=== PATIENT | female | born 1985 | race Caucasian/White ===

== ENCOUNTER 2016-09-11 15:13 | Outpatient (CLI) | payer OTHER ==
[~2016-09-11] VITALS: Ht 154.9 cm; Wt 49.2 kg
[~2016-09-11 15:13] MED LIST: DIMISTA PO; OMEP20CA16 PO; XOPENEX
[2016-09-11 15:17] VITALS: Ht 154.9 cm; Wt 49.2 kg
[2016-09-11 15:30] VITALS: BP 127/72; PULSE 83; RESP 18
--- NOTE | 2016-09-11 16:03 | RADRPT ---
PROCEDURE: US OB biophysical profile. CLINICAL INDICATION: decreased movements, contractions TECHNIQUE: Multiple sonographic images of the pelvis were obtained. The images were reviewed on a PACS workstation. COMPARISON: No prior studies are available for comparison. FINDINGS: There is a single viable intrauterine gestation. Cardiac activity is present with 119 beats per min tejon. There is a breech presentation. The placenta is fundal. There is no evidence of placental abruption. There is a decreased amount of amniotic fluid with an OPAL = 6.1 cm. Biophysical profile: movement 2/2 tone 2/2. breathing 2/2 OPAL 2/2 Total 11/17 RPTAT: AA . IMPRESSION: Normal biophysical profile. Oligohydramnios. . .Eduard Lopez MD, Date Time Electronically viewed and signed by .Eduard Lopez MD, MD on 09/11/2016 16:02 .S/
--- NOTE | 2016-09-11 22:36 | RADRPT ---
PROCEDURE: OB ultrasound CLINICAL INDICATION: . OB ultrasound with fluid volume assessment. TECHNIQUE: Sonographic evaluation to assess the amniotic fluid volume was performed. Transabdomin al imaging of the gravid uterus was performed. COMPARISON: 09/11/2016 FINDINGS: The amniotic fluid index equals approximately 8.0 cm. heart rate: 130 Beats per minute. Presentation: Breech Placenta is fundal - maternal left IMPRESSION: Amniotic fluid index equals 8.0 cm. Previously 6.1 cm Breech presentation. RPTAT: AADD .Edward Mary MD, MD Date Time Electronically viewed and signed by .Edward Mary MD, on 09/11/2016 22:35 .B/
--- NOTE | 2016-10-01 17:15 | QN ---
Documentation Comment IUP 38w back pain MARIALUISA RAMIREZ MD Oct 01, 2016 17:15
== END 2016-09-11 23:15 | disposition home or self-care (01) ==
LOC: OBT 15:13 → L-D 15:14 → OBG 16:39 → OBT 23:15
PROVIDERS: ATTEND Obstetrics & Gynecology
DX: O26.893 Other specified pregnancy related conditions, third trimester (principal); M54.9 Dorsalgia, unspecified; Z3A.38 38 weeks gestation of pregnancy
CPT/HCPCS: 59025; 76815; 76818; Z7500; G0463

== ENCOUNTER 2016-09-15 16:48 | Inpatient (IN) | payer OTHER ==
[~2016-09-15] VITALS: Ht 154.9 cm; Wt 49.4 kg
[2016-09-15 16:58] VITALS: Ht 154.9 cm; Wt 49.4 kg
[2016-09-15 16:59] VITALS: RESP 19
[2016-09-15] MEDS ORDERED: PRENAT PO (17:00)
--- NOTE | 2016-09-15 17:43 | RADRPT ---
PROCEDURE: OB ultrasound for biophysical profile CLINICAL INDICATION: Low amniotic fluid index. TECHNIQUE: Multiple sonographic images of the pelvis were obtained. Transabdominal view of the gr avid uterus are available for review. The images were reviewed on a PACS workstation. COMPARISON: 09/11/2016. FINDINGS: breathing movement = 2/2 tone = 2/2 motion = 2/2 Quantitative amniotic fluid volume = 2/2 OPAL = 4.6 cm Single live intrauterine with cardiac activity at 150 beats per minute. There is a fundal placenta without previa. IMPRESSION: 1. Single living intrauterine gestation in breech position. 2. Biophysical profile = 8/8. 3. OPAL = 4.6 cm consistent with borderline oligohydramnios. RPTAT: AACC Physician Fuad Date Time Electronically viewed and signed by Physician Fuad on 09/15/2016 17:43 /
--- NOTE | 2016-09-15 18:00 | TRIAGE ---
OB Triage Datetime Report Generated by CPN: 09/15/2016 18:00 Datetime: 09/15/2016 17:47 Maternal Assessment Level of Consciousness: Fully Conscious DTR's/Clonus: DTRs 1+ Headache: Denies Blurred Vision: No Nausea/Vomiting: Denies RUQ Epigastric Pain: Denies Facial Edema: None Labor Evaluation Frequency: IRREGULAR Monitor Mode: External Duration (sec)2399: 40-60 Quality: Mild Pattern: Normal: <= 5 Contractions in 10 Minutes Resting Tone [place]: Relaxed Heart Rate FHR Baseline Rate: 120 Monitor Mode: External US Variability: Moderate 6-25 bpm Accelerations: 15X15 Decelerations: None Category: Category I Pain Assessment Pain Scale: 0 Pain Presence: None/Denies Pain Type: N/A Pain Goal: 3 Datetime: 09/15/2016 17:16 Maternal Assessment Level of Consciousness: Fully Conscious DTR's/Clonus: DTRs 1+ Headache: Denies Blurred Vision: No Respiratory Effort: Unlabored Breath Sounds, Left: Clear and Equal Breath Sounds, Right: Clear and Equal Nausea/Vomiting: Denies RUQ Epigastric Pain: Denies Facial Edema: None Labor Evaluation Frequency: X1 Monitor Mode: External Duration (sec)2399: 70 Resting Tone [place]: Relaxed Heart Rate FHR Baseline Rate: 125 Monitor Mode: External US Variability: Moderate 6-25 bpm Accelerations: 15X15 Decelerations: None Category: Category I Pain Presence: None/Denies Pain Type: N/A Vaginal Exam Membrane Status: Intact Datetime: 09/15/2016 17:02 Assessment Type: Triage Maternal Assessment Level of Consciousness: Fully Conscious DTR's/Clonus: DTRs 2+; No Clonus Headache: Denies Blurred Vision: No Respiratory Effort: Unlabored; Regular Rhythm; Equal Expansion Breath Sounds, Left: Clear and Equal Breath Sounds, Right: Clear and Equal Nausea/Vomiting: Denies RUQ Epigastric Pain: Denies Lower Extremities Edema: None Degree: None Upper Extremities Edema: None Degree: None Facial Edema: None Fall Risk Assessment History of Falling: (0) No Secondary Diagnosis: (0) No Ambulatory Aid: (0) Bedrest/Nurse Assist IV Therapy: (0) No Gait: (0) Normal/Bedrest/Immobile Mental Status: (0) Oriented to Own Ability Fall Score: 0 Fall Risk Score Definition: No Risk: No action required Datetime: 09/15/2016 16:45 Time of Arrival: 09/15/2016 16:45 EGA: 39.0 Arrived By: Ambulatory Arrived From: [facility] Office Chief Complaint: P;T CAME IN FOR A F/U NST ANSBPP FOR LOW OPAL Movement: Present Contractions: Denies/Absent Rupture of Membranes: Denies Vaginal Discharge: Denies Recent Sexual Intercouse: Denies Additional Patient Complaints: NONE Time Provider Notified: 09/15/2016 17:53 Provider Notified: JAMES Initial Plan: NST AND BPP Datetime: 09/11/2016 22:00 Labor Evaluation Frequency: 0 Monitor Mode: External Heart Rate FHR Baseline Rate: 120 Monitor Mode: External US FHR Baseline Changes: No Baseline Change Variability: Moderate 6-25 bpm Accelerations: 15X15 Decelerations: None Category: Category I Datetime: 09/11/2016 21:00 Labor Evaluation Frequency: IRREG Monitor Mode: External Quality: Mild Resting Tone [place]: Relaxed Heart Rate FHR Baseline Rate: 125 Monitor Mode: External US FHR Baseline Changes: No Baseline Change Variability: Moderate 6-25 bpm Accelerations: 15X15 Decelerations: None Category: Category I Datetime: 09/11/2016 19:59 Labor Evaluation Frequency: IRREG OCC Monitor Mode: External Duration (sec)2399: 30-80 Quality: Mild Resting Tone [place]: Relaxed Heart Rate FHR Baseline Rate: 130 Monitor Mode: External US FHR Baseline Changes: No Baseline Change Variability: Moderate 6-25 bpm Accelerations: 15X15 Decelerations: Prolonged (Annotations: [id number] PROLONGED DECEL NOTED ON STRIP REVEIW. ) Category: Category II Datetime: 09/11/2016 19:00 Labor Evaluation Frequency: x4 Monitor Mode: External Duration (sec)2399: 70 Quality: Mild Heart Rate FHR Baseline Rate: 120 Monitor Mode: External US FHR Baseline Changes: No Baseline Change Variability: Moderate 6-25 bpm Accelerations: 15X15 Pain Presence: None/Denies Datetime: 09/11/2016 18:00 Labor Evaluation Frequency: IRREGULAR Monitor Mode: External Duration (sec)2399: 70 Quality: Mild Heart Rate FHR Baseline Rate: 125 Monitor Mode: External US FHR Baseline Changes: No Baseline Change Variability: Moderate 6-25 bpm Accelerations: 15X15 Pain Assessment Pain Scale: 0 Pain Presence: None/Denies Pain Type: N/A Datetime: 09/11/2016 16:52 Monitor Mode: External Monitor Mode: External US Pain Assessment Pain Scale: 0 Pain Presence: None/Denies Pain Type: N/A Datetime: 09/11/2016 16:23 Labor Evaluation Frequency: irr Monitor Mode: External Quality: Mild Pattern: Normal: <= 5 Contractions in 10 Minutes Resting Tone [place]: Relaxed Heart Rate FHR Baseline Rate: 125 Monitor Mode: External US FHR Baseline Changes: No Baseline Change Variability: Moderate 6-25 bpm Accelerations: 15X15 Decelerations: None Category: Category I Vaginal Exam Membrane Status: Intact Datetime: 09/11/2016 15:26 Stage of : OB Triage Datetime: 09/11/2016 15:22 Stage of : OB Triage Maternal Assessment Level of Consciousness: Fully Conscious DTR's/Clonus: DTRs 2+; No Clonus Headache: Denies Blurred Vision: No Respiratory Effort: Unlabored; Regular Rhythm; Equal Expansion Breath Sounds, Left: Clear and Equal Breath Sounds, Right: Clear and Equal Nausea/Vomiting: Denies RUQ Epigastric Pain: Denies Lower Extremities Edema: Bilateral Lower Extremities Degree: 1+ Upper Extremities Edema: None Degree: None Facial Edema: None Temperature Route: Axillary Fall Risk Assessment History of Falling: (0) No Secondary Diagnosis: (0) No Ambulatory Aid: (0) Bedrest/Nurse Assist IV Therapy: (0) No Gait: (0) Normal/Bedrest/Immobile Mental Status: (0) Oriented to Own Ability Fall Score: 0 Fall Risk Score Definition: No Risk: No action required Monitor Mode: External Duration (sec)2399: cramping Quality: Mild Pattern: Normal: <= 5 Contractions in 10 Minutes Heart Rate FHR Baseline Rate: 130 Monitor Mode: External US FHR Baseline Changes: No Baseline Change Variability: Moderate 6-25 bpm Accelerations: 15X15 Decelerations: None Pain Assessment Pain Scale: 1 Pain Presence: Constant Pain Type: Cramping; Sharp Pain Location: Abdomen; Back Datetime: 09/11/2016 15:21 Time of Arrival: 09/11/2016 16:30 EGA: 38.3 Arrived By: Ambulatory Arrived From: Other Unit in Hospital Datetime: 09/11/2016 15:19 Time of Arrival: 09/11/2016 15:19 Arrived By: Ambulatory Arrived From: Home Chief Complaint: cramping and back pain Movement: Present Rupture of Membranes: Denies Vaginal Bleeding: None Vaginal Discharge: Denies Recent Sexual Intercouse: Denies Abdominal Trauma: Not Applicable Patient Complaints: Contractions; Cramping; Back Pain Time Provider Notified: 09/11/2016 16:24 Initial Plan: yimi/ RICK
[2016-09-15] MEDS ORDERED: MISOPROSTOL 200 MCG TAB PR PRN (18:30)
[2016-09-15] MEDS ORDERED: OXYTOCIN 30 UNITS/LR 500 ML IV PRN (18:30)
[2016-09-15] MEDS ORDERED: METHYLERGONOVINE 0.2 MG INJ IM PRN (18:30)
[2016-09-15] MEDS ORDERED: CEFAZOLIN 2 GM/50 ML (PMX) 50 ML IV SCH (18:30)
[2016-09-15] MEDS ORDERED: OXYTOCIN 30 UNITS/LR 500 ML IV SCH (18:30)
[2016-09-15] MEDS ORDERED: CARBOPROST 250 MCG INJ IM PRN (18:30)
[2016-09-15] MEDS: LACTATED RINGER'S 1,000 ML IV SCH ×2 (19:04→19:57)
--- NOTE | 2016-09-15 19:43 | HP ---
Date/Time of Note Date/Time of Note DATE: 09/15/16 TIME: 19:29 OB - History Hx of Present Free Text/Dictation 30 y.o EDC 09/22/16 admitted for primary section for breech presentation her OPAL has been low which was monitor closely , also known to have A1DM today here for f/u OPAL which was 4.9 EFM also shows variabl deceleration prepare for primary section after proper consent obtained. add: pt is Rh neg, multiple occasions showed antibody which was no detectable on each test Chief Complaint: primary section for breech presentation, oligohyramnious Estimated Due Date: Sep 22, 2016 : 1 Para: 0 Spontaneous : 0 Therapeutic : 0 Care: Good Care Ultrasounds: Normal mid trimester US Obstetrical Complications: None Medical Complications: None Past Family/Social History * Past Medical, Surgical, Family and Obstetric Histories reviewed from chart. Blood Type: A- Rubella: immune RPR/VDRL: Negative GBS Status: Negative HBsAG: Negative OB Admission Exam Vital Signs Vital Signs Vital Signs Date Time Temp Pulse Resp B/P Pulse Ox O2 Delivery O2 Flow Rate FiO2 09/15/16 16:59 98.0 19 99 Room Air Physical Exam HEENT: WNL Heart: Rhythm Normal Lungs: Clear, Equal Abdomen: WNL Extremities: Normal Reflexes: Normal Cervical Dilatation: other Effacement: Other Station: Other Membranes: Intact Amniotic Fluid: Unevaluable Heart Rate: 140's Accelerations: Accelerations Present Decelerations: Variable Decelerations Varibility: Moderate Contractions on Admission: None OB Assessment/Plan Reason for admission: section Other Assessment: radha breech presentation Plan: Section MARIALUISA RAMIREZ MD Sep 15, 2016 19:40
[2016-09-15 20:20] LABS: ADD SCAN DIFF NO
[2016-09-15 20:23] LABS: BASOPHIL # 0.1 10^3/ul (0.0-0.1); BASOPHILS % 0.3 % (0.0-2.0); EOSINOPHILS % 0.2 % (0.0-7.0); HEMATOCRIT 38.4 % (37.0-47.0); HEMOGLOBIN 13.6 g/dl (12.0-16.0); LYMPHOCYTES # 2.1 10^3/ul (0.8-2.9); LYMPHOCYTES % 11.9 % (15.0-51.0); MEAN CORPUSCULAR HEMOGLOBIN 35.3 pg (29.0-33.0); MEAN CORPUSCULAR HGB CONC 35.4 g/dl (32.0-37.0); MEAN CORPUSCULAR VOLUME 99.7 fl (82.0-101.0); MEAN PLATELET VOLUME 10.8 fl (7.4-10.4); MONOCYTE # 0.8 10^3/ul (0.3-0.9); MONOCYTES % 4.3 % (0.0-11.0); NEUTROPHIL # 14.6 10^3/ul (1.6-7.5); NEUTROPHILS % 82.8 % (39.0-77.0); PLATELET COUNT 175 10^3/UL (140-415); RED BLOOD COUNT 3.85 10^6/ul (4.20-5.40); RED CELL DISTRIBUTION WIDTH 15.2 % (11.5-14.5); WHITE BLOOD COUNT 17.6 10^3/ul (4.8-10.8)
[2016-09-15 20:40] LABS: INR 0.88; PARTIAL THROMBOPLASTIN TIME 26.2 Sec (25.0-35.0); PROTIME 11.9 Sec (12.2-14.2); PT RATIO 0.9
[2016-09-15] MEDS ORDERED: LACTATED RINGER'S 1,000 ML IV ONE (20:49)
[2016-09-15] MEDS ORDERED: CITRIC ACID/SODIUM CITRATE 15 ML CUP PO ONE (21:00)
[2016-09-15] MEDS ORDERED: ONDANSETRON 4 MG INJ IV ONE (21:00)
[2016-09-15] MEDS ORDERED: FENTAnyl 50 MCG/ML VIAL ONE (21:43)
[2016-09-15] MEDS ORDERED: morphine SULFATE/PF (10 MG/10 ML) INJ ONE (21:43)
[2016-09-15] MEDS ORDERED: OXYTOCIN 30 UNITS/LR 500 ML IV ONE (21:58)
[2016-09-15] MEDS ORDERED: METOCLOPRAMIDE 10 MG INJ ONE (21:58)
[2016-09-15] MEDS ORDERED: MEPERIDINE 100 MG INJ ONE (22:23)
[2016-09-15] MEDS ORDERED: ONDANSETRON 4 MG INJ ONE (22:35)
[2016-09-15] MEDS ORDERED: morphine 2 MG INJ IV PRN ×2 (23:30)
[2016-09-15] MEDS ORDERED: KETOROLAC 30 MG INJ IV PRN (23:30)
[2016-09-15] MEDS ORDERED: ONDANSETRON 4 MG INJ IV PRN (23:30)
[2016-09-15] MEDS ORDERED: DIPHENHYDRAMINE 50 MG INJ IV PRN (23:30)
[2016-09-15] MEDS ORDERED: NALOXONE (0.4 MG/ML) INJ IV PRN (23:30)
[2016-09-15] MEDS ORDERED: PROCHLORPERAZINE 10 MG INJ IV PRN (23:30)
[2016-09-16] VITALS (7 sets, daily range): BP systolic 95–127; BP diastolic 56–82; PULSE 66–112; RESP 17–19
--- NOTE | 2016-09-16 00:24 | OPR ---
DATE OF OPERATION: 09/15/2016 PREOPERATIVE DIAGNOSIS: , 39 weeks, oligohydramnios, A1 diabetes mellitus, breech presenta tion. POSTOPERATIVE DIAGNOSIS: , 39 weeks, oligohydramnios, A1 diabetes mellitus, breech present ation, delivered normal male , 6 pounds, Apgars 8 and 9. OPERATION PROCEDURE: Primary low transverse section. ANESTHESIA: Spinal. ANESTHESIOLOGIST: Dr. Barajas. SURGEON: Mindy Deleon MD DRILL PRESS SET UP OPERATOR RADIAL: Patrick Bullock MD ESTIMATED BLOOD LOSS: Approximately 500 mL. PROCEDURE: Under appropriate induction of spinal anesthesia, the patient was placed in the frog pos ition. Rick catheter was introduced into the bladder under sterile condition. Repositioned to sup ine. Abdominal wall was prepped and draped in usual aseptic manner. A Pfannenstiel incision was ma de. The incision carried down through the subcutaneous space to the recti fascia, which was incised transversely in length of the incision. Fascial flap was created by blunt and sharp dissection of tendinous attachment and 2 rectus muscles split in the midline. Peritoneal cavity was entered. Aleksey dder blade introduced and low segment of the uterus was exposed. A transverse incision was made abo ve the uterovesical reflection and reached the uterine muscle transversely layer by layer and membra ne ruptured, which revealed a moderate amount of fluid rather than oligohydramnios was described on the ultrasound. Normal male infant was from left sacral anterior position by assisted breech extrac tion and the mouth and nose were cleaned. Cord was clamped, delayed, and cut and handed to the [facility] iratory care personnel for further care. Cord blood was obtained. The placenta was removed manuall y. Cavity was completely explored after uterus was exteriorized. Uterine incision was closed using #1 chromic catgut in continuous manner and second layer using 0 chromic catgut with a thin needle a nd including the bladder flap. No bleeder was noted. Abdominal cavity was irrigated. The uterus w as relocated in the abdominal cavity. Incisional site was checked, which was dry. A piece of Surgi blanco was laid on it and the parietal peritoneum was closed using 0 chromic catgut in continuous hema r, muscle closed with 0 chromic catgut in continuous manner. Fascia closed with #1 Vicryl in contin uous manner in 2 segments. Subcutaneous used 2-0 chromic catgut in continuous manner after irrigati on. Skin closed with a 3-0 Monocryl in subcuticular manner. Steri-Strips were applied. Pressure d ressing applied. Estimated blood loss approximately 500 mL. The patient withstood the procedure we ll and was sent to recovery room in good condition. Urine output is about 100 mL during procedure. Dictated By: MINDY HERZOG/ASHLEY Conf#: [id number] DID#: [id number]
[2016-09-16] MEDS ORDERED: OXYTOCIN 30 UNITS/LR 500 ML IV PRN (02:00)
[2016-09-16] MEDS ORDERED: CARBOPROST 250 MCG INJ IM PRN (02:00)
[2016-09-16] MEDS ORDERED: LANOLIN 7 GM TUBE TOP PRN (02:00)
[2016-09-16] MEDS ORDERED: METHYLERGONOVINE 0.2 MG INJ IM PRN (02:00)
[2016-09-16] MEDS ORDERED: MISOPROSTOL 200 MCG TAB PR PRN (02:00)
[2016-09-16] MEDS ORDERED: ZOLPIDEM 5 MG TAB PO PRN (02:00)
[2016-09-16] MEDS ORDERED: OXYTOCIN 30 UNITS/LR 500 ML IV SCH (02:30)
--- NOTE | 2016-09-16 07:30 | OPPN ---
Date/Time of Note Date/Time of Note DATE: 09/16/16 TIME: 07:29 Anesthesia Follow up Anesthesia Follow up Last documented vital signs Vital Signs Date Time Temp Pulse Resp B/P Pulse Ox O2 Delivery O2 Flow Rate FiO2 09/16/16 03:59 97.9 90 18 127/78 Room Air 09/16/16 03:29 96 21 Respiratory function: WNL Cardiovascular function: WNL Comments Pt is POD 1 s/p primary c/s for low OPAL and breech. She is VSS, A&Ox3, no issues , less nauseous, BAUM, sensation intact, tolerating po. ELLIS RODRIGUEZ MD Sep 16, 2016 07:30
[2016-09-16 07:36] LABS: ADD SCAN DIFF NO
[2016-09-16 07:42] LABS: BASOPHILS % 0.2 % (0.0-2.0); HEMATOCRIT 35.4 % (37.0-47.0); HEMOGLOBIN 12.1 g/dl (12.0-16.0); LYMPHOCYTES # 1.5 10^3/ul (0.8-2.9); LYMPHOCYTES % 6.8 % (15.0-51.0); MEAN CORPUSCULAR HEMOGLOBIN 34.8 pg (29.0-33.0); MEAN CORPUSCULAR HGB CONC 34.2 g/dl (32.0-37.0); MEAN CORPUSCULAR VOLUME 101.7 fl (82.0-101.0); MEAN PLATELET VOLUME 10.7 fl (7.4-10.4); MONOCYTE # 1.2 10^3/ul (0.3-0.9); MONOCYTES % 5.2 % (0.0-11.0); NEUTROPHIL # 19.6 10^3/ul (1.6-7.5); NEUTROPHILS % 87.3 % (39.0-77.0); PLATELET COUNT 158 10^3/UL (140-415); RED BLOOD COUNT 3.48 10^6/ul (4.20-5.40); RED CELL DISTRIBUTION WIDTH 15.2 % (11.5-14.5); WHITE BLOOD COUNT 22.5 10^3/ul (4.8-10.8)
[2016-09-16] MEDS ORDERED: LACTATED RINGER'S 1,000 ML IV SCH (11:00)
--- NOTE | 2016-09-16 16:31 | PN ---
Date/Time of Note Date/Time of Note DATE: 09/16/16 TIME: 16:26 OB Subjective Subjective Subjective still have meraz cath not been ambulating OB Objective Objective Objective vss afebrile abdomen soft wound dry ext neg wbc [id number] from [id number] OB Assessment/Plan Other Assessment: stable post c/s #1 Other plan: repeat cbc in am MARIALUISA RAMIREZ MD Sep 16, 2016 16:31
[2016-09-16] MEDS: SENNA/DOCUSATE NA (8.6MG/50MG) TAB PO SCH (21:46)
[2016-09-16] MEDS ORDERED: DIPHENHYDRAMINE 50 MG INJ IV PRN (21:55)
[2016-09-16] MEDS ORDERED: ONDANSETRON 4 MG INJ IV PRN (21:55)
[2016-09-16] MEDS ORDERED: OXYCODONE/ACETAMINOPHEN (5/325) TAB PO PRN ×2 (21:55)
[2016-09-16] MEDS: IBUPROFEN 600 MG TAB PO SCH (23:37)
[2016-09-17 04:00] VITALS: BP 103/60; PULSE 61; RESP 19
[2016-09-17] MEDS: IBUPROFEN 600 MG TAB PO SCH ×3 (05:43→17:39)
[2016-09-17 06:38] LABS: ADD SCAN DIFF NO
[2016-09-17 06:45] LABS: BASOPHIL # 0.1 10^3/ul (0.0-0.1); BASOPHILS % 0.3 % (0.0-2.0); EOSINOPHILS # 0.2 10^3/ul (0.0-0.5); EOSINOPHILS % 0.8 % (0.0-7.0); HEMATOCRIT 34.8 % (37.0-47.0); HEMOGLOBIN 12.1 g/dl (12.0-16.0); LYMPHOCYTES # 1.2 10^3/ul (0.8-2.9); MEAN CORPUSCULAR HEMOGLOBIN 35.4 pg (29.0-33.0); MEAN CORPUSCULAR HGB CONC 34.8 g/dl (32.0-37.0); MEAN CORPUSCULAR VOLUME 101.8 fl (82.0-101.0); MEAN PLATELET VOLUME 10.6 fl (7.4-10.4); MONOCYTES % 4.9 % (0.0-11.0); NEUTROPHIL # 17.2 10^3/ul (1.6-7.5); NEUTROPHILS % 87.4 % (39.0-77.0); PLATELET COUNT 184 10^3/UL (140-415); RED BLOOD COUNT 3.42 10^6/ul (4.20-5.40); RED CELL DISTRIBUTION WIDTH 15.3 % (11.5-14.5); WHITE BLOOD COUNT 19.7 10^3/ul (4.8-10.8)
[2016-09-17 09:00] VITALS: BP 105/59; PULSE 54; RESP 17
[2016-09-17] MEDS: SENNA/DOCUSATE NA (8.6MG/50MG) TAB PO SCH (10:13)
--- NOTE | 2016-09-17 12:19 | RADRPT ---
PROCEDURE: US Lower extremity Venous. CLINICAL INDICATION: C/O CALF TENDERNESS TECHNIQUE: Multiple sonographic images of the bilateral lower extremity deep venous system was obt ained utilizing grayscale, color-flow, compressive sonography and doppler imaging with augmentation. The images were reviewed on a PACS workstation. COMPARISON: None. FINDINGS: There is normal compressibility and flow within the bilateral common femoral, deep femoral, superfic ial femoral, posterior tibial, peroneal and popliteal veins. IMPRESSION: No sonographic evidence for deep venous thrombosis. RPTAT:AAJJ Physician Ivana Date Time Electronically viewed and signed by Physician Ivana on 09/17/2016 12:19 /
[2016-09-17 16:35] VITALS: BP 119/58; PULSE 80; RESP 20
[2016-09-17 20:00] VITALS: BP 118/69; PULSE 70; RESP 18
--- NOTE | 2016-09-17 20:56 | PN ---
Date/Time of Note Date/Time of Note DATE: 09/17/16 TIME: 20:54 OB Subjective Subjective Subjective passing flatus voiding ok OB Objective Objective Objective vss afebrile abdomen soft wound dry lochia min calf ? tenderness devi S/p tristen horse OB Assessment/Plan Other Assessment: post primary section R/O DVT BLE Other plan: doppler u/s BLE MARIALUISA RAMIREZ MD Sep 17, 2016 20:56
--- NOTE | 2016-09-17 20:58 | QN ---
Documentation Comment DOPPLER U/S BLE NEG MARIALUISA RAMIREZ MD Sep 17, 2016 20:58
[2016-09-18] MEDS: IBUPROFEN 600 MG TAB PO SCH ×3 (00:06→12:00)
[2016-09-18] MEDS: SENNA/DOCUSATE NA (8.6MG/50MG) TAB PO SCH ×2 (00:06→10:14)
[2016-09-18 05:00] VITALS: BP 116/66; PULSE 67; RESP 19
[2016-09-18 09:00] VITALS: BP 135/79; PULSE 73; RESP 16
[2016-09-18] MEDS ORDERED: DIPHTH/TET/ACEL PERTUSS (ADULT) 0.5 ML VIAL IM* ONE (09:00)
--- NOTE | 2016-09-18 15:40 | DS ---
Date/Time of Note Date/Time of Note DATE: 09/18/16 TIME: 15:38 Obstetrical Discharge Record Final Diagnosis Final Diagnosis: Term delivered Other Final Diagnosis breech presentaion Section Section: Primary Complications Augmentation: No Induction: No Rupture of Membranes: No Condition on Discharge Physical Assessment Last Vitals: vss afebrile Voiding: Yes Bowel Movement: No Fundus: Firm Abdomen and Incision: soft wound dry Calf Tenderness: No Patient Condition: Stable MARIALUISA RAMIREZ MD Sep 18, 2016 15:40
--- NOTE | 2016-09-18 15:42 | PD.PPDC ---
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
== END 2016-09-18 20:00 | disposition home or self-care (01) | DRG 766 ==
LOC: L-D 16:48 → OBT 16:48 → L-D 18:09 → PP1 09-16 01:45
PROVIDERS: ADMIT Obstetrics & Gynecology; ATTEND Obstetrics & Gynecology
PROC: 10D00Z1 Extraction of Products of Conception, Low, Open Approach (ICD-10-PCS; principal; 2016-09-15 21:00)
DX: O41.03X0 Oligohydramnios, third trimester, not applicable or unspecified (principal); O24.419 Gestational diabetes mellitus in pregnancy, unspecified control; O32.1XX0 Maternal care for breech presentation, not applicable or unspecified; Z3A.39 39 weeks gestation of pregnancy; Z37.0 Single live birth
CPT/HCPCS: 76818; 85025; 85610; 85730; 86592; 86850; 86870; 86900; 86901; 90715; 93970; 94760; 99464; G0463; J0690; J0780; J1200; J1885; J2175; J2274; J2405; J2590; J2765; J3010; J7120

== ENCOUNTER 2017-04-16 05:46 | Day surgery (SDC) | END 2017-04-16 12:11 | disposition home or self-care (01) ==

== ENCOUNTER 2017-05-27 06:22 | Day surgery (SDC) | END 2017-05-27 09:50 | disposition home or self-care (01) ==